=== PATIENT | female | born 1965 | race Hispanic/Latino ===

== ENCOUNTER → 2018-03-27 | Day surgery (SDC) | payer OTHER ==
[2018-03-26 10:26] LABS: INR 0.95; PROTHROMBIN TIME 11.9 seconds (11.9-14.5)
[2018-03-26 10:27] LABS: PARTIAL THROMBOPLASTIN TIME 27.6 seconds (23.8-35.5)
[~2018-03-27] MED LIST: BACITRACIN 50,000 UNIT VIAL ONE; BUPIVACAINE 0.5%/EPI 30 ML SDV INJ ONE; BUPIVACAINE HCL 0.5% 10ML MPF VIAL INJ ONE; CEFAZOLIN SOD 1 GM VIAL ONE; CELEBREX100 MG PO; CYMBALTA20 MG PO; DEXAMETHASONE SOD PHOS INJ 4 MG/ML VIAL IV ONE; FENTANYL CITRATE/PF 100MCG/2 ML INJ IJ ONE; GELATIN SPONGE SZ 100 ONE; HYZAAR 100-12.1 EACH; KETOROLAC TROMETHAMINE 30 MG/ML VIAL IV ONE; LIDOCAINE HCL 2% LOCAL INJ 5 ML SDV VIAL INJ ONE; MIDAZOLAM HCL 2 MG/2 ML VIAL INJ ONE; MONTELUKAST SOD10 MG PO; OMEPRAZOLE40 MG; ONDANSETRON HCL INJ 2 MG/ML VIAL IV ONE; OXYBUTYNIN CHLOR5 MG PO; PROPOFOL IV EMULSION 10 MG/ML 20 ML VIAL IV ONE; SEVOFLURANE INHAL SOLN 250 ML PEN BTL INH ONE; THROMBIN FOR SOLN 5,000 UNIT VIAL ONE
--- NOTE | 2018-03-27 14:06 | Operative Report ---
DATE OF PROCEDURE: March 27, 2018 PREOPERATIVE DIAGNOSIS: Right carpal tunnel syndrome. POSTOPERATIVE DIAGNOSIS: Right carpal tunnel syndrome. PROCEDURE: Right carpal tunnel release. ANESTHESIA: General. INDICATIONS: The patient is a 52-year-old woman who presents with a right carpal tunnel syndrome and was taken to the operating room for a right carpal tunnel release. PROCEDURE: After the induction of general anesthesia, the patient was placed on the operating table in supine position with the right arm abducted over a hand table. The right hand, wrist and forearm were prepped and draped circumferentially in sterile fashion. A small midline incision was created. The subcutaneous fat was divided. The transverse carpal ligament was identified and incised with a number 15C blade until the underlying median nerve came into view. As the tiler's assistant retracted the skin edges, the transverse carpal ligament was divided proximally and distally until the full length of the ligament had been divided and the full length of the median nerve was exposed and decompressed within the carpal tunnel. The point of maximum compression of the nerve appeared to be 3 cm distal to the distal flexor crease of the wrist where the ligament was at its thickest. More distally, the recurrent motor branch of the nerve was preserved within its fat pad. The wound was copiously irrigated with Bacitracin solution. Meticulous hemostasis was secured. The retractor was removed. The subcutaneous layer was closed with a 3-0 Vicryl suture. The skin was closed with a 3-0 nylon suture in a horizontal mattress fashion. A dressing was applied. The patient was awakened, extubated and taken to the postanesthesia care unit in stable condition. No intraoperative complications were encountered. Estimated blood loss was minimal. Job#: [id number]
== END | disposition home or self-care (01) ==
LOC: OR 07:54
PROVIDERS: ATTEND Neurological Surgery
CPT/HCPCS: 36415; 85610; 85730; 93005; J0690; J1100; J1885; J2001; J2250; J2405